=== PATIENT | female | born 1995 | race Caucasian/White ===

== ENCOUNTER → 2016-08-28 | Outpatient (CLI) | payer OTHER | END | disposition home or self-care (01) | LOC: C.PAPS 13:16 | PROVIDERS: ATTEND Obstetrics & Gynecology | DX: Z01.419 Encounter for gynecological examination (general) (routine) without abnormal findings (principal) ==

== ENCOUNTER 2017-06-12 02:07 | Emergency (ER) | payer OTHER ==
[~2017-06-12] VITALS: Ht 157.5 cm; Wt 95.7 kg
[2017-06-12 02:17] VITALS: TEMP 36.9; O2SAT 99; Ht 157.5 cm; Wt 95.7 kg
[2017-06-12 02:52] LABS: BLOOD UREA NITROGEN 7 mg/dl (7-18); CALCIUM 8.4 mg/dl (8.5-10.1); CARBON DIOXIDE 21 mmol/L (21-32); CREATININE 0.55 mg/dl (0.60-1.20); GLUCOSE 96 mg/dl (70-99); POTASSIUM 2.7 mmol/L (3.5-5.1); SODIUM 140 mmol/L (136-145)
[2017-06-12] MEDS ORDERED: POTASSIUM CHLORIDE 10 MEQ TABCR PO STA (04:14)
[2017-06-12 06:17] VITALS: BP 99/58; O2SAT 98
[2017-06-12 06:22] VITALS: PULSE 111
--- NOTE | 2017-06-12 06:31 | EMERGENCY ROOM VISIT NOTE ---
History First contact with patient: 02:09 Chief Complaint: ALCOHOL OVERDOSE Stated Complaint: ALCOHOL OVERDOSE Nursing Triage Summary: PT was found at [facility] noted to be intoxicated, brought in by EMS. upon arrival PT calm and cooperative. PT oriented to person and place. Was drinking [place] [employer] te[employer]. Denies any drug usage. History of Present Illness The patient is a 21 year old female who presents to the Emergency Room with complaints of alcohol intoxication he was highly intoxicated at [facility]. Patient states she drank a lot of alcohol. No falls. Patient denies chest pain, dyspnea, fever, chills, abdominal pain. Review of Systems An 10 system review of systems was completed with positives and pertinent negatives listed in the HPI. Past Medical/Surgical History Spina bifida Social History Smoking Status: Never Smoker Alcohol Use: occasionally Drug Use: none Marital Status: Housing Status: lives with family Occupation Status: [employer] student Current/Historical Medications No Active Prescriptions or Reported Meds Physical Exam Vital Signs Date Time Temp Pulse Resp B/P (MAP) Pulse Ox O2 Delivery O2 Flow Rate FiO2 06/12/17 06:22 111 06/12/17 04:33 86 18 95/62 99 Room Air 06/12/17 03:33 86 18 97/67 99 Room Air 06/12/17 02:28 Room Air 06/12/17 02:28 Room Air 06/12/17 02:17 99 Room Air 06/12/17 02:17 99 Room Air 06/12/17 02:17 36.9 79 18 118/78 99 Room Air 06/12/17 02:15 90 Physical Exam PHYSICAL EXAM: VITALS: Vitals are noted on the nurse's note and reviewed by myself. Vital signs stable. GENERAL: Pleasant female with EtOH odor, in no acute distress, nondiaphoretic, well-developed well-nourished. The patient is visibly intoxicated. SKIN: The skin was without obvious lacerations, abrasions, or rashes. There is no tenting of the skin. Capillary reflex less than 2 seconds. HEENT: Normocephalic, atraumatic. PERRLA. EOMI. Conjunctiva with mild injection without icterus. Tympanic membranes without erythema or effusion bilaterally no hemotympanum. External auditory canals are clear. Nares patent bilaterally. No epistaxis. Oropharynx without erythema or exudate. Uvula midline. Oral mucosal moist. No lymphadenopathy. Neck is supple without cervical spine tenderness. HEART: Regular rate and rhythm without murmurs gallops or rubs. Peripheral pulses 2+. LUNGS: Clear to auscultation bilaterally without wheezes, rales or rhonchi. ABDOMEN: Positive bowel sounds x 4. Normal tympanic percussion. Soft, nontender, without masses or organomegaly. MUSCULOSKELETAL: Gross motor function of the upper and lower extremities intact. The patient has a staggering gait. NEUROLOGIC: The patient is visibly intoxicated. Once they were more sober they were alert and oriented to person place and time. Medical Decision & Procedures Laboratory Results 06/12/17 02:20 Test 06/12/17 02:20 Anion Gap 10.0 mmol/L (3-11) Est Creatinine Clear Calc Drug Dose 171.7 ml/min Estimated GFR () > 150.0 Estimated GFR (Non- 132.2 BUN/Creatinine Ratio 13.3 (10-20) Calcium Level 8.4 mg/dl (8.5-10.1) Ethyl Alcohol mg/dL 205.0 mg/dl (0-3) ED Course Prior records/ancillary studies reviewed. Triage Nursing notes reviewed. Additional history obtained from EMS. The patient's history was concerning for altered mental status and a possible alcohol overdose. Differential diagnosis: Etiologies such as alcohol intoxication, toxicologic, infection, hypoglycemia, electrolyte abnormalities, cardiac sources, intracerebral event, neurologic, as well as others were entertained. Physical examination: As above. The patient is clinically intoxicated. no trauma noted. ER treatment provided: Monitoring Aspiration precautions The patient was frequently reassessed. Diagnostic interpretation by me: Cardiac monitoring did not reveal any evidence of dysrhythmia. The labs revealed hypokalemia. The patient's blood alcohol level was 205 mg/dL. The patient's history was reviewed once they were more coherent and their intoxication cleared. The patient states they have been in good health recently and had no medical complaints. The patient admitted to consuming alcohol. No additional concerning findings were noted. The patient complained of no symptoms to suggest assault. This appears to be consistent with an isolated overdose of alcohol. Patient's potassium was low. Most likely from excessive alcohol use. She is advised to avoid excessive alcohol use in the future and to take the rest the potassium with lunch today. She is advised to recheck her potassium level next week with health services. By the evaluation outlined above emergent etiologies such as trauma, infection, hypoglycemia, electrolyte abnormalities, cardiac sources, intracerebral event, neurologic,as well as others were deemed relatively unlikely. The patient was informed about the findings as listed above. The patient was counseled on the dangers of excessive alcohol use. I gave my usual and customary discussion regarding this issue. All questions were answered and the patient was pleased with the treatment. Return instructions were outlined and the patient was discharged in stable condition once their mental status improved and a safe destination was confirmed. Outpatient prescription management: None Referral: The patient was referred back to their primary care physician for follow-up in 2 to 3 days for a recheck of their current condition. Medical Decision As above Medication Reconcilliation Current Medication List: was personally reviewed by me Blood Pressure Screening Patient's blood pressure: Normal blood pressure Impression Primary Impression: Alcoholic intoxication Additional Impression: Hypokalemia Departure Information Dispostion Home / Self-Care Condition GOOD Prescriptions No Active Prescriptions or Reported Meds Referrals No Doctor, Assigned (PCP) Patient Instructions My [facility] Additional Instructions Your potassium was low today. This most likely is from your excessive alcohol use. Take the rest of the potassium with lunch tomorrow that was given to you in the ER. Recommend that you recheck your potassium level next week with health services. Keep well-hydrated. Tylenol every 6 hours as needed for pain (Maximum 3000 mg Tylenol in 24 hr period). Follow up with family doctor and/or health services as needed. No driving for the next 24 hours. Recommend no alcohol for the next 48 hours and avoid binge drinking in the future. Return to ER sooner for chest pain, abdominal pain, worsening signs or symptoms or as needed. Problem Qualifiers Primary Impression: Alcoholic intoxication Complication of substance-induced condition: uncomplicated Qualified Codes: F10.920 - Alcohol use, unspecified with intoxication, uncomplicated
[2017-06-12] MEDS ORDERED: POTASSIUM CHLORIDE 10 MEQ TABCR ONE (06:59)
== END 2017-06-12 07:00 | disposition home or self-care (01) ==
LOC: EDBD 02:07 → C.EDB 02:08
DX: F10.920 Alcohol use, unspecified with intoxication, uncomplicated (principal); E87.6 Hypokalemia